=== PATIENT | female | born 1990 | race Caucasian/White ===

== ENCOUNTER 2018-06-25 16:45 | Outpatient (CLI) | payer MEDICAID ==
[~2018-06-25] VITALS: Ht 149.9 cm; Wt 71.6 kg
[2018-06-25] MEDS ORDERED: PREN-93 PO (17:27)
[2018-06-25] MEDS ORDERED: AMOX500C2 PO (17:27)
[2018-06-25 17:28] VITALS: Ht 149.9 cm; Wt 71.6 kg
[2018-06-25 17:29] VITALS: BP 100/55; PULSE 92; RESP 18
--- NOTE | 2018-06-25 19:24 | PN ---
Triage Information Date/Time Jun 25, 2018 Reason for visit: Abd/pelvic pain Weeks of Gestation TWINS 29w 2d /Para 3/2 Diabetes: none Hypertention: none Additional information Pt had a tooth puller 6 days ago and was put on Amoxicillin and has had diarrhea since that time and abdominal pain since this AM. PMHx: none. PSHx: x 2. All: ASA Objective Vital Signs Date Temp Pulse Resp B/P (MAP) Pulse Ox O2 O2 Flow FiO2 Time Delivery Rate 06/25/18 97.8 92 18 100/55 17:29 (70) Heart Rate: 140's Heart Rate Comments No decels. Contractions: None Results/Medications Results 24 hrs Laboratory Tests Test 06/25/18 17:00 Urine Color YELLOW Urine Clarity CLEAR Urine pH 6.0 Urine Specific [place] 1.005 Urine Ketones NEGATIVE Urine Nitrite NEGATIVE Urine Bilirubin NEGATIVE Urine Urobilinogen NEGATIVE Urine Leukocyte Esterase NEGATIVE Urine Microscopic RBC 0 Urine Microscopic WBC 0 Urine Squamous Epithelial Cells FEW Urine Hemoglobin 2+ H Urine Glucose NEGATIVE Urine Total Protein NEGATIVE Imaging Results Twin A MVP 4.4 Twin B MVP 4.9 Cervical length 4.4 cm. Disposition: Discharge Assessment/Plan A: TWINS. IUP at 29w 2d. Diarhhea and abdominal pain. P: [facility] then october d/c home. Explained to pt that the loose stools and the pain won't resolve until she stops the antibiotics. INES CRONIN MD Jun 25, 2018 19:24
[2018-06-25] MEDS ORDERED: LOPERAMIDE HCL 1 MG/5 ML LIQUID (10 ML UD CUP) PO ONE (20:30)
== END 2018-06-25 19:50 | disposition home or self-care (01) ==
LOC: OBT 16:45 → L-D 16:45 → OBT 19:50
PROVIDERS: ATTEND Obstetrics & Gynecology
DX: O30.003 Twin pregnancy, unspecified number of placenta and unspecified number of amniotic sacs, third trimester (principal); O26.893 Other specified pregnancy related conditions, third trimester; R19.7 Diarrhea, unspecified; R10.9 Unspecified abdominal pain; Z3A.29 29 weeks gestation of pregnancy
CPT/HCPCS: 59025; 76815; 76817; 81001; Z7500; Z7610; G0463

== ENCOUNTER 2018-08-02 16:15 | Outpatient (CLI) | payer MEDICAID ==
[~2018-08-02] VITALS: Ht 149.9 cm; Wt 76.3 kg
[~2018-08-02 16:15] MED LIST: PREN-93 PO
[2018-08-02 16:29] VITALS: BP 115/73; PULSE 103; RESP 18; Ht 149.9 cm; Wt 76.3 kg
--- NOTE | 2018-08-02 17:59 | TRIAGE ---
OB Triage Datetime Report Generated by CPN: 08/02/2018 17:59 Datetime: 08/02/2018 17:00 Stage of : OB Triage Maternal Assessment Level of Consciousness: Fully Conscious Labor Evaluation Frequency: 3UC/HR Monitor Mode: External Duration (sec)2399: 60-80 Quality: Mild Resting Tone [place]: Relaxed Heart Rate FHR Baseline Rate: 135 Monitor Mode: External US Variability: Moderate 6-25 bpm Accelerations: 15X15 Decelerations: None Category: Category I Pain Assessment Pain Scale: 0 Pain Goal: 3 Vaginal Exam Membrane Status: Intact Vaginal Bleeding: None Datetime: 08/02/2018 16:26 Assessment Type: Triage Maternal Assessment Level of Consciousness: Fully Conscious DTR's/Clonus: DTRs 2+; No Clonus Headache: Denies Blurred Vision: No Respiratory Effort: Unlabored; Regular Rhythm; Equal Expansion Breath Sounds, Left: Clear and Equal Breath Sounds, Right: Clear and Equal Nausea/Vomiting: Denies RUQ Epigastric Pain: Denies Lower Extremities Edema: None Degree: None Upper Extremities Edema: None Degree: None Facial Edema: None Fall Risk Assessment History of Falling: (0) No Secondary Diagnosis: (0) No Ambulatory Aid: (0) Bedrest/Nurse Assist IV Therapy: (0) No Gait: (0) Normal/Bedrest/Immobile Mental Status: (0) Oriented to Own Ability Fall Score: 0 Fall Risk Score Definition: No Risk: No action required Datetime: 08/02/2018 16:24 Time of Arrival: 08/02/2018 16:07 EGA: 34.5 Arrived By: Ambulatory Arrived From: Office Chief Complaint: pt. sent in for NST/BPP FOR TWIN GEST. AND R/O PTL Movement: Present Contractions: Denies/Absent Rupture of Membranes: Denies Vaginal Bleeding: None Vaginal Discharge: Denies Recent Sexual Intercouse: Denies Abdominal Trauma: Not Applicable Patient Complaints: None Time Provider Notified: 08/02/2018 17:40 Provider Notified: HADADIAN Initial Plan: EFM/BPPX2 Datetime: 08/02/2018 16:19 Monitor Mode: External Monitor Mode: External US Datetime: 07/05/2018 10:25 Fall Score: 0 Fall Risk Score Definition: No Risk: No action required Datetime: 07/05/2018 09:53 EGA: 30.5 Datetime: 06/25/2018 16:52 EGA: 29.2 Datetime: 06/25/2018 16:51 Fall Score: 0 Fall Risk Score Definition: No Risk: No action required
--- NOTE | 2018-08-02 20:26 | PN ---
Triage Information Date/Time Reason for visit: Antepartum testing Weeks of Gestation 34 weeks and 5 days /Para Diabetes: none Hypertention: none Objective Vital Signs Date Temp Pulse Resp B/P (MAP) Pulse Ox O2 O2 Flow FiO2 Time Delivery Rate 08/02/18 98.5 103 18 115/73 Room Air 16:29 (87) Heart Rate: 140's Contractions: 6-10 Minutes Apart Disposition: Discharge Assessment/Plan 28 years old 3 para 2001 with single intrauterine at 34 weeks and 5 days with CLIFTON of 09/08/2018 with twin gestation presented for antepartum testing. She states good movement. She denies nausea, vomiting, shortness of breath, chest pain, headache, visual changes, vaginal bleeding or LOF. - FHRs: No sign of metabolic acidosis- Category I - She has irregular uterine contraction, patient does not feel dose - Ultrasound performed, normal amniotic fluid index. Biophysical profile for both baby 8 out of 8 - Symptoms and sign of labor, preeclampsia, kick count discussed with patient, she voiced understanding. All of her questions answered. - Patient was discharged home in stable condition with the appropriate discharge instructions provided. I would like patient to have close follow-up with her primary physician or outpatient clinic in 1-2 days or return to triage for worsening symptoms or any other urgent concerns. CEZAR BERRIOS Aug 02, 2018 20:26
== END 2018-08-02 18:05 | disposition home or self-care (01) ==
LOC: OBT 16:15 → L-D 16:16 → OBT 18:05
PROVIDERS: ATTEND Obstetrics & Gynecology
DX: O30.003 Twin pregnancy, unspecified number of placenta and unspecified number of amniotic sacs, third trimester (principal); Z3A.34 34 weeks gestation of pregnancy
CPT/HCPCS: 76818; Z7500; G0463

== ENCOUNTER 2018-08-23 19:24 | Inpatient (IN) | payer MEDICAID ==
[~2018-08-23] VITALS: Ht 149.9 cm; Wt 79.0 kg
[2018-08-23 21:59] VITALS: Ht 149.9 cm; Wt 79.0 kg
[2018-08-23] MEDS ORDERED: OXYTOCIN 30 UNITS/LR 500 ML IV PRN (22:00)
[2018-08-23] MEDS ORDERED: MISOPROSTOL 200 MCG TAB PR PRN (22:00)
[2018-08-23] MEDS ORDERED: METHYLERGONOVINE 0.2 MG INJ IM PRN (22:00)
[2018-08-23] MEDS ORDERED: CEFAZOLIN 2 GM/50 ML (PMX) 50 ML IVPB SCH (22:00)
[2018-08-23] MEDS ORDERED: CARBOPROST 250 MCG INJ IM PRN (22:00)
[2018-08-23] MEDS ORDERED: OXYTOCIN 30 UNITS/LR 500 ML IV SCH (22:00)
[2018-08-23 22:01] VITALS: BP 135/89; PULSE 87; RESP 18
--- NOTE | 2018-08-23 22:04 | TRIAGE ---
OB Triage Datetime Report Generated by CPN: 08/23/2018 22:04 Datetime: 08/23/2018 19:43 Stage of : OB Triage Assessment Type: Triage Maternal Assessment Level of Consciousness: Fully Conscious DTR's/Clonus: DTRs 2+; No Clonus Headache: Denies Blurred Vision: No Respiratory Effort: Unlabored; Regular Rhythm; Equal Expansion Breath Sounds, Left: Clear and Equal Breath Sounds, Right: Clear and Equal Nausea/Vomiting: Denies RUQ Epigastric Pain: Denies Facial Edema: None Temperature Route: Oral Fall Risk Assessment History of Falling: (0) No Secondary Diagnosis: (0) No Ambulatory Aid: (0) Bedrest/Nurse Assist IV Therapy: (0) No Gait: (0) Normal/Bedrest/Immobile Mental Status: (0) Oriented to Own Ability Fall Score: 0 Fall Risk Score Definition: No Risk: No action required Pain Assessment Pain Scale: 0 Pain Presence: None/Denies Pain Type: N/A Datetime: 08/23/2018 19:35 Time of Arrival: 08/23/2018 19:15 EGA: 37.5 Arrived By: Ambulatory Arrived From: Dr. Celaya Chief Complaint: Sent from office for elevated BP's. Movement: Present Contractions: Denies/Absent Rupture of Membranes: Denies Vaginal Bleeding: None Vaginal Discharge: Denies Recent Sexual Intercouse: Denies Abdominal Trauma: Not Applicable Patient Complaints: Other Time Provider Notified: 08/23/2018 20:45 Provider Notified: Dr. Ayala Initial Plan: CEFM Datetime: 08/02/2018 16:26 Fall Score: 0 Fall Risk Score Definition: No Risk: No action required Datetime: 08/02/2018 16:24 EGA: 34.5 Datetime: 07/05/2018 10:25 Fall Score: 0 Fall Risk Score Definition: No Risk: No action required Datetime: 07/05/2018 09:53 EGA: 30.5 Datetime: 06/25/2018 16:52 EGA: 29.2 Datetime: 06/25/2018 16:51 Fall Score: 0 Fall Risk Score Definition: No Risk: No action required
--- NOTE | 2018-08-23 23:57 | PREAC ---
Date/Time of Note Date/Time of Note DATE: 08/23/18 TIME: 23:55 Anesthesia Eval and Record Evaluation Time Pre-Procedure Interview DATE: 08/23/18 TIME: 23:55 Age 28 Sex female NPO: 4 hrs a few bites of apple at 2100 Preoperative diagnosis rupture of membranes, twin gestation, previous Csection Planned procedure Repeat Csection Past Medical History Past Medical History: Includes : Twin Surgery & Anesthesia Issues No known issue Meds Anticoagulation: No Beta Genaro within 24 hr: No Reason Beta Genaro not given: Pt. not on B-Genaro Reported Medications Vit No.124/Iron/FA ( Vitamin Tablet) 1 Each Tablet, 1 EACH PO DAILY, TAB 06/25/18 Current Medications Cefazolin Sodium/ Dextrose 50 ml @ 100 mls/hr ONCE IVPB ; Start 08/23/18 at 22:00 Oxytocin/Lactated Ringer's 500 ml @ 125 mls/hr POST IV ; Start 08/23/18 at 22:00 Oxytocin/Lactated Ringer's 500 ml @ 0 mls/hr ONCE PRN IV .VAGINAL BLEEDING; Start 08/23/18 at 22:00 Methylergonovine Maleate (Methergine) 0.2 mg ONCE PRN IM .VAGINAL BLEEDING; Start 08/23/18 at 22:00 Carboprost Tromethamine (Hemabate) 250 mcg ONCE PRN IM .VAGINAL BLEEDING; Start 08/23/18 at 22:00 Misoprostol (Cytotec) 1,000 mcg ONCE PRN ID .VAGINAL BLEEDING; Start 08/23/18 at 22:00 Meds reviewed: Yes Allergies Coded Allergies: aspirin (Verified Allergy, Unknown, throat swelling and rash, 08/23/18) Allergies Reviewed: Yes Labs/Studies Labs Reviewed: Reviewed by anesthesiologist Result Diagram: 08/23/18 2330 Laboratory Tests 08/23/18 23:30 test: Positive Pre-procedure Exam Last vitals Vital Signs Date Temp Pulse Resp B/P (MAP) Pulse Ox O2 O2 Flow FiO2 Time Delivery Rate 08/23/18 98.8 87 18 135/89 Room Air 22:01 (104) Airway: Adequate mouth opening, Adequate thyromental dist Mallampati: Mallampati III Teeth: Normal Lung: Normal Heart: Normal ASA Physical Status ASA physical status: 2 Emergency: E Planned Anesthetic Neuraxial: Spinal Planned Pain Management Sub-arachniod narcotics, Parenteral pain med, Other neuraxial med Pre-operative Attestations Prior to commencing anesthesia and surgery, the patient was re-evaluated, there was verification of: *The patient's identity *The results of appropriate recent lab work and preoperative vital signs *The above evaluation not changing prior to induction *Anesthetic plan, risk benefits, alternative and complications discussed with patient/family; questions answered; patient/family understands, accepts and wishes to proceed. ALLY VICENTE MD Aug 23, 2018 23:57
[2018-08-24] MEDS ORDERED: LABETALOL HCL 20MG INJ IV PRN
[2018-08-24] MEDS ORDERED: HYDROmorphONE 1 MG/5 ML IV SYRINGE IV PRN ×3
[2018-08-24] MEDS ORDERED: NALOXONE (0.4 MG/ML) INJ IV PRN
[2018-08-24] MEDS ORDERED: DIPHENHYDRAMINE 50 MG INJ IV PRN ×2
[2018-08-24] MEDS ORDERED: HYDROmorphONE 0.5 MG/0.5 ML SYG IV PRN
[2018-08-24] MEDS ORDERED: FENTAnyl 50 MCG/ML VIAL IV PRN ×2
[2018-08-24] MEDS ORDERED: ONDANSETRON 4 MG INJ IV PRN ×2
[2018-08-24] MEDS ORDERED: hydrALAzine 20 MG INJ IV PRN
[2018-08-24] MEDS ORDERED: LEVALBUTEROL (NEB) 1.25 MG/0.5 ML AMP HHN PRN
[2018-08-24] MEDS ORDERED: ZOLPIDEM 5 MG TAB PO PRN
[2018-08-24] MEDS ORDERED: ONDANSETRON 4 MG INJ IV STA (00:16)
[2018-08-24] MEDS ORDERED: OXYTOCIN 10 UNIT INJ ONE ×2 (00:20)
[2018-08-24] MEDS ORDERED: morphine SULFATE/PF (10 MG/10 ML) INJ ONE (00:20)
[2018-08-24] MEDS ORDERED: OXYTOCIN 30 UNITS/LR 500 ML IV ONE (00:20)
--- NOTE | 2018-08-24 00:20 | HP ---
Date/Time of Note Date/Time of Note DATE: 08/23/18 TIME: 23:56 OB - History Hx of Present Free Text/Dictation 28 years old with diamniotic/dichorionic twin gestation at 37 weeks and 5 days seen at the clinic for visit and was noted has elevated blood pressure in range of 143/91-160 3/104. Patient sent to triage for further evaluation. She states good movement. She denies nausea, vomiting, shortness of breath, chest pain, headache, visual changes, vaginal bleeding or LOF. Risk factors 1. Diamniotic dichorionic twin gestation 2. Gestational hypertension 3. Previous delivery x2 Chief Complaint: Elevated blood pressure Estimated Due Date: Sep 08, 2018 : 3 Para: 2 Spontaneous : 0 Therapeutic : 0 Care: Good Care Ultrasounds: Normal mid trimester US Obstetrical Complications: Gestational Hypertension Medical Complications: None Past Family/Social History * Past Medical, Surgical, Family and Obstetric Histories reviewed from chart. Blood Type: O+ Rubella: immune RPR/VDRL: Negative GBS Status: Negative HBsAG: Negative OB Admission Exam Vital Signs Vital Signs Vital Signs Date Temp Pulse Resp B/P (MAP) Pulse Ox O2 O2 Flow FiO2 Time Delivery Rate 08/23/18 98.8 87 18 135/89 Room Air 22:01 (104) Physical Exam HEENT: WNL Heart: Rhythm Normal Lungs: Clear Abdomen: WNL Extremities: Normal Reflexes: Normal Membranes: Intact Accelerations: Accelerations Present Decelerations: No Decelerations Varibility: Moderate Contractions on Admission: >10 Minutes Apart Last 72 hours Lab Results Section Procedure Note CBC & BMP 08/23/18 23:30 OB Assessment/Plan Other plan: 28 years old 3 para 2001 with diamniotic/dichorionic twin gestation, gestational hypertension and 2 previous delivery desiring repeat delivery and permanent surgical sterilization - FHRs: No sign of metabolic acidosis- Category I - Continuous EFM, toco - CBC, blood type and screen, CMP, uric acid, urinalysis - Please see the orders - O+/Rubella: Immune - GBS: Negative Addendum: While the patient was in triage, she was experiencing rupture of membrane. Exa m confirmed clear leakage of fluid. Presentation is breech/cephalic. The patient's last meal was at 16:00 yesterday and ate half of apple as snack at 21:00 yesterday. I have discussed the patient over the phone with Dr. Boone- anesthesiologist. As the presentation of baby A is breech and there is the risk of cord prolapse with rupture of membrane, the patient needs to have delivery. The risk of delivery including but not limited to bleeding, infection, injury to other organs (bowel, bladder, ureter, vessels, nerves), injury to fetus, blood transfusion, blood transfusion related infection, risk of anesthesia, adhesion, needs for future , removal of uterus or any other indicated surgery, permanent surgical sterilization, other contraceptive options including IUD, increased risk of ectopic if failure occurs discussed with the patient and her family. She expressed understanding. All of her questions were answered. She signed the informed consent. PHYSICIAN'S VERIFICATION OF INFORMED CONSENT The patient was counseled regarding the procedure, its indications, risks, potential complications and alternatives and any questions were answered. C onsent was obtained. PLANNED PROCEDURE/TREATMENT: delivery with possible using vacuum/forc eps, bilateral tubal ligation/bilateral salpingectomy and any other indicated surgery PHYSICIAN'S VERIFICATION OF INFORMED CONSENT FOR BLOOD TRANSFUSION: There is a reasonable possibility that blood transfusion will be necessary as a result of the patient's procedure. I have discussed the following with the patient/patient's legal circulation representative: An explanation of the benefits and risks of the transfusion of blood or blood products and the possible alternatives. All questions have been answered to the patient's satisfaction. INFORMED CONSENT:The patient has been informed of: The nature of the proposed care, treatment, services, medications, interventions or procedures. Potential benefits, risks or side effects, including potential problems related to recuperation. The likelihood of achieving care treatment and service goals. Reasonable alternatives to the proposed care, treatment and service. The relevant risks, benefits and side effects related to alternatives, including the possible results of not receiving care, treatment and services. When indicated, any limitations on the confidentiality of information learned from or about the patient. If appropriate, the risks, benefits and alternatives of the drugs to be used for sedation/analgesia including moderate sedation. If appropriate, patient has been provided information on the risks, benefits and alternatives to the transfusion of blood and/or blood products. If appropriate, patient has been provided information regarding the [place] Blood Act. CEZAR BERRIOS Aug 24, 2018 00:07
[2018-08-24] MEDS ORDERED: METOCLOPRAMIDE 10 MG INJ IV ONE (00:30)
[2018-08-24] MEDS ORDERED: FAMOTIDINE 20 MG INJ IV ONE (00:30)
[2018-08-24] MEDS ORDERED: PROPOFOL 20 ML ONE (01:29)
[2018-08-24] MEDS ORDERED: FENTAnyl 50 MCG/ML VIAL ONE (01:48)
[2018-08-24] MEDS ORDERED: MIDAZOLAM 1 MG/ML 2 ML INJ ONE (01:48)
[2018-08-24] MEDS ORDERED: LABETALOL HCL 20MG INJ ONE (02:00)
[2018-08-24] MEDS ORDERED: KETOROLAC 30 MG INJ ONE (02:18)
[2018-08-24] MEDS ORDERED: TRIAMCINOLONE ACET 40 MG/ML INJ IM ONE (02:30)
--- NOTE | 2018-08-24 03:17 | PAC ---
Date/Time of Note Date/Time of Note DATE: 08/24/18 TIME: 03:17 Post-Anesthesia Notes Post-Anesthesia Note Last documented vital signs Vital Signs Date Temp Pulse Resp B/P (MAP) Pulse Ox O2 O2 Flow FiO2 Time Delivery Rate 08/23/18 98.8 87 18 135/89 Room Air 22:01 (104) Activity: WNL Respiratory function: WNL Cardiovascular function: WNL Mental status: Baseline Pain reasonably controlled: Yes Hydration appropriate: Yes Nausea/Vomiting absent: Yes ALLY VICENTE MD Aug 24, 2018 03:17
--- NOTE | 2018-08-24 05:05 | OPR ---
Operative Report Planned Procedure Procedure date Aug 24, 2018 Procedure(s) 1. Repeat low transverse delivery 2. Bilateral tubal ligation 3. Lysis of adhesion Performed by see signature line Assembler For Puller Over Machine: CASEY CORREIA MD Anesthesiologist: ALLY VICENTE MD Pre-procedure diagnosis 28 years old 3 para 2001 with diamniotic/dichorionic twin gestation, gestational hypertension and 2 previous delivery desiring repeat delivery and permanent surgical sterilization [id number] Anesthesia Type: [id number] spinal Post-Procedure Post-procedure diagnosis 28 years old 3 para 2001 with diamniotic/monochorionic twin gestation, gestational hypertension and 2 previous delivery desiring repeat delivery and permanent surgical sterilization Findings 1. Normal uterus, fallopian tubes and ovaries 2. Baby A: Viable female in rola breech presentation. 9 at one minute and 9 in 5 minutes. Weight: 3105 g - 6 pound 14 ounces. High: 19 1/4 inches. Time of delivery: 01:45 Baby B: Viable female in cephalic presentation. 8 at one minute and 9 in 5 minutes. Weight: 40 g - 4 pound 15 ounces High: 18 1/4 inches. Time of delivery: 01:46 3. Placenta with three vessel cord 4. Amniotic fluids - Clear 5. Multiple omental adhesion to peritoneum which clamps, cut and suture ligated Estimated Blood Loss: 500 - 600 mls Specimen(s) none Grafts/Implant(s) none Complication(s) none Pt Condition post procedure: stable Disposition: PACU Procedure Description INDICATION AND HISTORY: A 28 years old 3 para 2001 with diamniotic/monochorionic twin gestation, gestational hypertension and 2 previous delivery desiring repeat delivery and permanent surgical sterilization. The risk of delivery including but not limited to bleeding, infection, injury to other organs (bowel, bladder, ureter, vessels, nerves), injury to fetus, blood transfusion, blood transfusion related infection, risk of anesthesia, adhesion, needs for future , removal of uterus or any other indicated surgery, permanent surgical sterilization, increased risk of ectopic if failure of procedure occurs discussed with the patient and her family. She expressed understanding. All of her questions were answered. She signed the informed consent. DESCRIPTION OF OPERATION: The patient was taken to the operating room, where she was identified and the procedure was verified. The patient received two gram of Ancef 30 minutes prior to surgery. After adequate spinal anesthesia, the patient placed in the dorsal supine position with a left tilt. The heart rate was 135/140 bpm. The patient was then prepped and draped in the normal sterile fashion. The patient had an vertical incision with large keloid. A vertical skin incision was made lateral to scar with knife and scar tissue was removed. Then the incision carried down to the fascia with knife. The fascia was incised in the midline and the fascial incision was carried vertically with knife. The rectus muscle was extremely thin, and the peritoneum was entered. The peritoneal incision was then stretched and an Trevon retractor was inserted. Then, an incision was made in the lower uterine segment in a transverse fashion with a knife and extended bluntly. The baby A was delivered atraumatically in rola breech presentation with the above findings. The umbilical cord was clamped and cut. Then baby B membrane was ruptured and the baby delivered atraumatically in cephalic presentation with the above findings, the umbilical cord was clamped and cut. The neonatology resuscitation team was present and the babies were handed to them. A cord blood samples was obtained for further evaluation. The placenta and membrane, which appeared normal were Removed. The uterus was cleared of all clot and debris. The uterus was then closed in a two layer fashion with 0-Monocryl. At the time of closure, hemostasis was noted. Then the left fallopian tube was identified and was grasped using Juan Diego clamp, segment of distal fallopian tube including fimbria was double ligated with O- plain, excised and sent to pathology. Same procedure repeated at the right side. Hemostasis of stump of both fallopian tube reassured. The gutters were irrigated. The peritoneum and fascia reapproximated with 0-PDS. The muscle was reapproximated with 3-0 Vicryl. The fascia was approximated with 0-Vicryl in a running fashion. The subcutaneous tissue was re approximated with 3-0 vicryl in a 2 layer. The skin was closed with Insorb and 4-0 Monocryl. All instruments, sponges and needle counts were correct x3. The patient tolerated the procedure well. She transferred to the recovery room in stable condition. CEZAR BERRIOS Aug 24, 2018 05:04
[2018-08-24 05:43] VITALS: BP 126/74; PULSE 67; RESP 18
[2018-08-24] MEDS ORDERED: OXYTOCIN 30 UNITS/LR 500 ML IV SCH (06:03)
[2018-08-24] MEDS ORDERED: METHYLERGONOVINE 0.2 MG TAB PO PRN (06:30)
[2018-08-24] MEDS ORDERED: MISOPROSTOL 200 MCG TAB PR PRN (06:30)
[2018-08-24] MEDS ORDERED: METHYLERGONOVINE 0.2 MG INJ IM PRN (06:30)
[2018-08-24] MEDS ORDERED: OXYTOCIN 30 UNITS/LR 500 ML IV PRN (06:30)
[2018-08-24] MEDS ORDERED: CARBOPROST 250 MCG INJ IM PRN (06:30)
[2018-08-24] MEDS ORDERED: METOPROLOL 5 MG INJ ONE (07:00)
[2018-08-24] MEDS: DEXTROSE 5%-LR 1,000 ML IV SCH ×2 (07:00→14:03)
[2018-08-24 08:30] VITALS: BP 119/75; PULSE 69; RESP 18
[2018-08-24] MEDS: SENNA/DOCUSATE NA (8.6MG/50MG) TAB PO SCH ×2 (09:00→20:14)
[2018-08-24 12:00] VITALS: BP 126/70; PULSE 72; RESP 18
[2018-08-24 15:51] VITALS: BP 108/62; PULSE 62; RESP 18
[2018-08-24 19:50] VITALS: BP 128/75; PULSE 60; RESP 19
[2018-08-24] MEDS: HYDROmorphONE 0.5 MG/0.5 ML SYG IV PRN ×2 (20:15→23:54)
[2018-08-25 04:06] VITALS: BP 140/84; PULSE 60; RESP 19
[2018-08-25] MEDS: HYDROCODONE/APAP (5/325) TAB PO PRN ×3 (04:06→17:23)
[2018-08-25] MEDS ORDERED: IBUPROFEN 800 MG TAB PO SCH (06:00)
[2018-08-25 07:55] VITALS: BP 115/72; PULSE 77; RESP 18
[2018-08-25] MEDS: SENNA/DOCUSATE NA (8.6MG/50MG) TAB PO SCH ×2 (09:32→22:38)
[2018-08-25] MEDS: MAGNESIUM HYDROXIDE 30ML CUP PO PRN (09:32)
[2018-08-25] MEDS ORDERED: DIPHTH/TET/ACEL PERTUSS (ADULT) 0.5 ML VIAL IM* ONE (11:00)
[2018-08-25] MEDS ORDERED: CELECOXIB 200 MG CAP PO SCH (13:00)
[2018-08-25] MEDS ORDERED: HYDROCODONE/APAP (5/325) TAB PO PRN (13:00)
[2018-08-25] MEDS ORDERED: HYDROCODONE/APAP (5/325) TAB GTB SCH (14:00)
[2018-08-25] MEDS: HYDROCODONE/APAP (5/325) TAB PO SCH ×2 (14:00→22:38)
[2018-08-25 15:50] VITALS: BP 127/78; PULSE 80; RESP 18
--- NOTE | 2018-08-25 17:09 | PN ---
Date/Time of Note Date/Time of Note DATE: 08/25/18 TIME: 17:08 OB Subjective Subjective Subjective POD#1 Patient is doing well. She denies nausea, vomiting, shortness of breath, chest pain, headache. She has been ambulating without difficulty, tolerating regular diet. Pain is well controlled on current medications OB Objective Objective Objective VS - Last 72 Hours, by Label Date Temp Pulse Resp B/P (MAP) Pulse Ox O2 O2 Flow FiO2 Time Delivery Rate 08/25/18 98.4 80 18 127/78 Room Air 15:50 (94) 08/25/18 99.1 77 18 115/72 Room Air 07:55 (86) 08/25/18 98.2 60 19 140/84 Room Air 8.0 04:06 (102) 08/24/18 98.3 60 19 128/75 Room Air 19:50 (92) 08/24/18 98.8 62 18 108/62 Room Air 15:51 (77) 08/24/18 98.5 72 18 126/70 99 Room Air 12:00 (88) 08/24/18 99.1 69 18 119/75 98 Room Air 08:30 (90) 08/24/18 98.3 67 18 126/74 Room Air 05:43 (91) 08/23/18 98.8 87 18 135/89 Room Air 22:01 (104) General: AAO X 3, comfortable, NAD, appropriate mood and affect. Heart: RRR +S1, +S2, no murmurs. Lungs: Clear to auscultation (B/L), no rales, rhonchi or wheezing. ABD: +BS. Soft, non-tender. Uterus 2 cm below umbilicus Incision: Clear, dry, intact. No erythema, drainage or induration. Flank: No CVA tenderness (B/L) LE: Mild edema. No clubbing, cyanosis, thigh or calf tenderness (B/L). Homans 'sign is negative OB Assessment/Plan Other plan: 28 years old 3 para 3004 s/p repeat low transverse delivery and bilateral tubal ligation. POD#1 - AF, VSS - Babies are doing well. Both are at bedside. She is bonding well with - Continue care CEZAR BERRIOS Aug 25, 2018 17:09
[2018-08-25] MEDS ORDERED: traMADol 50 MG TAB PO PRN (18:00)
[2018-08-25 20:00] VITALS: BP 134/89; PULSE 89; RESP 19
[2018-08-25] MEDS: traMADol 50 MG TAB PO SCH (22:39)
[2018-08-26 04:00] VITALS: BP 105/66; PULSE 65; RESP 20
[2018-08-26] MEDS: traMADol 50 MG TAB PO SCH ×3 (06:05→21:31)
[2018-08-26] MEDS: HYDROCODONE/APAP (5/325) TAB PO SCH ×3 (06:05→21:30)
[2018-08-26 08:00] VITALS: BP 121/73; PULSE 71; RESP 17
[2018-08-26] MEDS: MAGNESIUM HYDROXIDE 30ML CUP PO PRN (09:25)
[2018-08-26] MEDS: LANOLIN HPA 1 PKT TOP PRN (09:25)
[2018-08-26] MEDS: SENNA/DOCUSATE NA (8.6MG/50MG) TAB PO SCH ×2 (09:25→21:26)
[2018-08-26] MEDS: HYDROCODONE/APAP (5/325) TAB PO PRN ×3 (11:12→23:04)
[2018-08-26 15:50] VITALS: BP 125/78; PULSE 75; RESP 18
[2018-08-26 20:20] VITALS: BP 121/89; PULSE 71; RESP 18
[2018-08-27 04:00] VITALS: BP 108/67; PULSE 65; RESP 18
[2018-08-27] MEDS: HYDROCODONE/APAP (5/325) TAB PO SCH ×3 (06:16→22:12)
[2018-08-27] MEDS: traMADol 50 MG TAB PO SCH ×3 (06:16→22:12)
[2018-08-27 08:00] VITALS: BP 116/61; PULSE 71; RESP 18
[2018-08-27] MEDS ORDERED: MEASLES,MUMPS,RUBELLA VACCINE INJ SC* ONE (09:00)
[2018-08-27] MEDS ORDERED: DIPHTH/TET/ACEL PERTUSS (ADULT) 0.5 ML VIAL IM* ONE (09:00)
[2018-08-27] MEDS: SENNA/DOCUSATE NA (8.6MG/50MG) TAB PO SCH ×2 (09:15→20:37)
--- NOTE | 2018-08-27 13:01 | QN ---
Documentation Comment POD#3 is stable afebrile tolerates diet No VB +BM +Voids VS stable Gen NAD Abd soft NT ND Incision intact Gentalia No blood at perineum -->Discharge plan tomorrow as babies are iot discharged -->Precautions discussed MORA BERMUDEZ M.D. Aug 27, 2018 13:01
[2018-08-27 15:58] VITALS: BP 111/86; PULSE 74; RESP 18
[2018-08-27 19:40] VITALS: BP 114/88; PULSE 70; RESP 19
[2018-08-27] MEDS: LANOLIN HPA 1 PKT TOP PRN (22:12)
[2018-08-28 04:00] VITALS: BP 110/66; PULSE 76; RESP 20
[2018-08-28] MEDS: traMADol 50 MG TAB PO SCH ×2 (05:51→13:26)
[2018-08-28] MEDS: HYDROCODONE/APAP (5/325) TAB PO SCH ×2 (05:51→13:26)
[2018-08-28 08:00] VITALS: BP 126/83; PULSE 67; RESP 20
[2018-08-28] MEDS: SENNA/DOCUSATE NA (8.6MG/50MG) TAB PO SCH (09:02)
--- NOTE | 2018-08-28 13:18 | QN ---
Documentation Comment POD#4 is stable afebrile tolerates diet No VB +BM+Voids VS stable Gen NAD Abd soft NT ND Incision intact Gentalia No blood at perineum -->Discharge plan -->Ambulation -->Precautions discussed MORA BERMUDEZ M.D. Aug 28, 2018 13:18
--- NOTE | 2018-08-28 13:18 | DS ---
Date/Time of Note Date/Time of Note DATE: 08/28/18 TIME: 13:18 Discharge Summary Admission/Discharge Info Admit Date/Time Aug 23, 2018 at 20:45 Discharge Date/Time 08/28/2018 Discharge Diagnosis Patient Condition: Good Hospital Course uneventful Home Meds Reported Medications Vit No.124/Iron/FA ( Vitamin Tablet) 1 Each Tablet, 1 EACH PO DAILY, TAB 06/25/18 Primary Care Provider Care Physician No Primary MORA BERMUDEZ M.D. Aug 28, 2018 13:18
--- NOTE | 2018-08-29 15:10 | NSTRPT ---
NST Information Datetime Report Generated by CPN: 08/29/2018 15:10 Datetime: 08/23/2018 08:18 NST Information EGA: 37.5 Test Number: 5 Time on Monitor: 08/23/2018 09:03 Time off Monitor: 08/23/2018 09:31 NST Duration (Min): 28 Reason for NST: Multiple Gestation; Other Reason for NST Other: Twins/Repeat C/section Test and Monitor Explained: Monitor Explained; Test Explained; Verbalized Understanding Pulse: 72 Resp: 18 SBP: 114 DBP: 89 Test Evaluation NST Interventions: None NST Interventions Other: twin b on at 0906 Patient States Movement: Present Contraction Frequency: occassional 20-30/mild/pain level 0 FHR Baseline : 140 Variability: Moderate 6-25bpm Accelerations: 15X15 Decelerations: None FHR Category: Category I NST Results: Reactive Comments: To u/s TWIN A BREECH,TRANSVERSE LEFT, MVP 3.0 cm TWIN B [place] RIGHT, MVP 4.3 cm NST Baby B Patient States Movement: Present FHR Baseline: 135 Variability: Moderate 6-25bpm Accelerations: 15X15 Decelerations: None FHR Category: Category I NST Results: Reactive Electronically Signed By E-Signature: with User ID: [id number] Datetime: 08/19/2018 08:45 NST Information EGA: 37.1 NST Duration (Min): 139 Datetime: 08/16/2018 09:14 NST Information EGA: 36.5 NST Duration (Min): 66 Datetime: 08/12/2018 09:50 NST Information EGA: 36.1 NST Duration (Min): 50 Datetime: 08/09/2018 09:10 NST Information EGA: 35.5 NST Duration (Min): 37 Datetime: 08/05/2018 13:30 NST Information EGA: 35.1 NST Duration (Min): 39
--- NOTE | 2018-08-29 17:50 | DELSUM ---
Delivery Summary A-C Datetime Report Generated by [facility]: 08/29/2018 17:50 DELIVERY PERSONNEL Dyer Helper: Tamiko Mendoza MATERNAL INFORMATION Delivery Anesthesia: Epidural; Spinal (Annotations: Data stored by [facility] on behalf of user) Medications in Delivery: SEE ANESTHESIA RECORD Delivery QBL (ml): 600 Placenta Cultured: Yes Maternal Complications: None LABOR SUMMARY EDC: 09/08/2018 00:00 No. Babies in Womb: 2 Attempted: No Labor Anesthesia: None LABOR INFORMATION Reason for Induction: Not Applicable Oxytocin: N/A Group B Beta Strep: Negative Antibiotics # of Doses: X1 ANCEF 2G Antibiotics Time of Last Dose: 08/24/2018 05:02 Steroids Given: None Reason Steroids Not Administered: Not Applicable MEMBRANES Membranes Rupture Method: Spontaneous Rupture of Membranes: 08/23/2018 23:10 Length of Rupture (hr): 2.58 Amniotic Fluid Color: Clear Amniotic Fluid Amount: Copious Amniotic Fluid Odor: None STAGES OF LABOR Stage 3 hr: 0 Stage 3 min: 3 CSECTION DELIVERY Primary Indication: Repeat Elective Secondary Indication: N/A (Annotations: Data stored by N on behalf of user) CSection Urgency: Elective CSection Incidence: Repeat Labor: No Labor Elective: Elective CSection Incision: Classical Sterilization Procedure: [place] BABY A INFORMATION Infant Delivery Date/Time: 08/24/2018 01:45 Method of Delivery: Born in Route : No : N/A Forceps: N/A Vacuum Extraction: N/A Shoulder Dystocia : N/A SHOULDER DYSTOCIA BABY A Infant Delivery Date/Time: 08/24/2018 01:45 PRESENTATION/POSITION BABY A Presentation: Breech Cephalic Presentation: N/A Breech Presentation: Neal PLACENTA INFORMATION BABY A Placenta Delivery Time : 08/24/2018 01:48 Placenta Method of Delivery: Expressed Placenta Status: Delivered SCORES BABY A Heart Rate 1 min: >100 bpm Resp Effort 1 min: Good Cry Reflex Irritability 1 min: Cough/Sneeze/Pulls Away Muscle Tone 1 min: Active Motion Color 1 min: Body [place], Extremit Blue Resuscitation Effort 1 min: Tactile Stimulation SCORE 1 MIN: 9 Heart Rate 5 min: >100 bpm Resp Effort 5 min: Good Cry Reflex Irritability 5 min: Cough/Sneeze/Pulls Away Muscle Tone 5 min: Active Motion Color 5 min: Body [place], Extremit Blue Resuscitation Effort 5 min: Tactile Stimulation SCORE 5 MIN: 9 INFANT INFORMATION BABY A Gestational Age at Delivery: 37.6 Gestational Status: Early Term- 37- 38.6 Weeks Infant Outcome : Liveborn Infant Condition : Stable Infant Sex: Female IDENTIFICATION/MEDS BABY A ID Band Number: [id number] ID Band Location: Right Leg; Left Arm Sensor Applied: Yes Sensor Number: [id number] Sensor Location : Cord Clamp Vitamin K Given : Not Given Erythromycin Given: Not Given WEIGHT/LENGTH BABY A Birthweight (gm): 3105 Infant Weight (lb): 6 Infant Weight (oz): 14 Length (in): 19.25 Length (cm): 48.90 CORD INFORMATION BABY A No. Cord Vessels: 3 Nuchal Cord : N/A Cord Blood Taken: Yes Suction: Mouth; Nose ASSESSMENT BABY A Infant Complications: None Physical Findings at Delivery: Within Normal Limits Infant Respirations: Appears Normal Campus Administrator/ALS Called : Yes Care By: GAYATRI Lange Transferred To: Remains with Mother BABY B INFORMATION Infant Delivery Date/Time: 08/24/2018 01:46 Method of Delivery : Born in Route : No : N/A Forceps : N/A Vacuum Extraction: N/A Shoulder Dystocia : N/A SHOULDER DYSTOCIA BABY B Infant Delivery Date/Time: 08/24/2018 01:46 PRESENTATION/POSITION BABY B Presentation : Cephalic Cephalic Position : Vertex Vertex Position: Right Occipital Posterior Breech Position: N/A ROM/PLACENTA INFO BABY B Rupture of Membranes: 08/23/2018 23:10 Length of Rupture (hr): 2.60 Placenta Delivery Time : 08/24/2018 01:48 Placenta Method of Delivery: Expressed Placental Status : Delivered SCORES BABY B Heart Rate 1 min: >100 bpm Resp Effort 1 min: Good Cry Reflex Irritability 1 min: Cough/Sneeze/Pulls Away Muscle Tone 1 min: Active Motion Color 1 min: Blue/Pale Resuscitation Effort 1 min: Tactile Stimulation SCORE 1 MIN: 8 Heart Rate 5 min: >100 bpm Resp Effort 5 min: Good Cry Reflex Irritability 5 min: Cough/Sneeze/Pulls Away Muscle Tone 5 min: Active Motion Color 5 min: Body [place], Extremit Blue Resuscitation Effort 5 min: Tactile Stimulation SCORE 5 MIN: 9 INFORMATION BABY B Gestational Age at Delivery: 37.6 Gestational Status : Early Term- 37- 38.6 Weeks Outcome : Liveborn Condition : Stable Infant Sex : Female IDENTIFICATION/MEDS BABY B ID Band Number : [id number] ID Band Location : Right Leg; Left Arm Sensor Applied: Yes Sensor Number : [id number] Sensor Location : Cord Clamp Vitamin K Given : Not Given Erythromycin Given : Not Given WEIGHT/LENGTH BABY B Birthweight (gm): 2240 Infant Weight (lb) : 4 Weight (oz): 15 Infant Length (in): 18.25 Infant Length (cm): 46.36 CORD INFORMATION BABY B No. Cord Vessels : 3 Nuchal Cord : N/A Cord Blood Taken : Yes Infant Suction : Mouth; Nose ASSESSMENT BABY B Complications : None Physical Findings at Delivery: Within Normal Limits Respirations : Appears Normal Campus Administrator/ALS Called : Yes Care By : Jody COLON Transfer To: Remains with Mother
== END 2018-08-28 15:00 | disposition home or self-care (01) | DRG 785 ==
LOC: OBT 19:24 → L-D 19:25 → OBT 20:45 → L-D 08-24 00:45 → PP1 08-24 05:43
PROVIDERS: ADMIT Obstetrics & Gynecology; ATTEND Obstetrics & Gynecology
PROC: 0UB70ZZ Excision of Bilateral Fallopian Tubes, Open Approach (ICD-10-PCS; 2018-08-24)
PROC: 10D00Z1 Extraction of Products of Conception, Low, Open Approach (ICD-10-PCS; principal; 2018-08-24 00:30)
DX: O30.043 Twin pregnancy, dichorionic/diamniotic, third trimester (principal); O32.1XX1 Maternal care for breech presentation, fetus 1; O13.4 Gestational [pregnancy-induced] hypertension without significant proteinuria, complicating childbirth; O34.211 Maternal care for low transverse scar from previous cesarean delivery; Z3A.37 37 weeks gestation of pregnancy; Z37.2 Twins, both liveborn; Z30.2 Encounter for sterilization
CPT/HCPCS: 80053; 81001; 84560; 85025; 85610; 85730; 86592; 86850; 86900; 86901; 88302; 88307; 99464; G0463; J0690; J1170; J1885; J2250; J2274; J2405; J2590; J2765; J3010; J7121

== ENCOUNTER 2018-09-08 10:37 | Emergency (ER) | payer MEDICAID ==
[~2018-09-08] VITALS: Ht 152.4 cm; Wt 66.8 kg
[2018-09-08 10:46] VITALS: Ht 152.4 cm; Wt 66.8 kg
[2018-09-08] MEDS ORDERED: BACITRACIN 0.9 GM OINT TOP ONE (14:00)
[2018-09-08 14:15] VITALS: BP 121/75; PULSE 83; RESP 16
--- NOTE | 2018-09-08 14:27 | ERD ---
ER Documentation Chief Complaint Chief Complaint suture removal on lower abdomen (08/24/18) HPI 28-year-old female presents for suture removal post . States that she went to her surgeon but her surgeon so that they do not have the materials to remove the sutures and told her to come to the ER. Denies any fevers, chills, discharge, pain, edema. ROS All systems reviewed and are negative except as per history of present illness. Medications Home Meds Reported Medications Vit No.124/Iron/FA ( Vitamin Tablet) 1 Each Tablet, 1 EACH PO DAILY, TAB 06/25/18 Allergies Allergies: Coded Allergies: aspirin (Verified Allergy, Unknown, throat swelling and rash, 09/08/18) PMhx/Soc Medical and Surgical Hx: pt denies Medical Hx History of Surgery: Yes (csection x 2) Anesthesia Reaction: No Hx Neurological Disorder: No Hx Respiratory Disorders: No Hx Cardiac Disorders: No Hx Psychiatric Problems: No Hx Miscellaneous Medical Probl: No Hx Alcohol Use: No Hx Substance Use: No Hx Tobacco Use: No Physical Exam Vitals Vital Signs Date Temp Pulse Resp B/P (MAP) Pulse Ox O2 O2 Flow FiO2 Time Delivery Rate 09/08/18 98.6 92 16 128/68 100 10:46 (88) Physical Exam Const: No acute distress Head: Atraumatic Eyes: Normal Conjunctiva ENT: Normal External Ears, Nose and Mouth. Neck: Full range of motion. No meningismus. Resp: Clear to auscultation bilaterally Cardio: Regular rate and rhythm, no murmurs Abd: Soft, non tender, non distended. Normal bowel sounds Skin: Surgical incision line noted into the lower abdomen with sutures in place. There is no sign of infection. No discharge, edema, erythema, or bleeding. There is also a piece of plastic noted in the suture area which is unable to be removed without making an incision. Back: No midline or flank tenderness Ext: No cyanosis, or edema Neur: Awake and alert Psych: Normal Mood and Affect Results 24 hrs Current Medications Medications Dose Sig/Rich Start Time Status Last (Trade) Ordered Route PRN Stop Time Admin Dose Reason Admin Bacitracin 1 applic ONCE ONCE 09/08/18 DC (Bacitracin TOP 14:00 09/08/18 Oint (Ud)) 14:01 Procedures/MDM Sutures were successfully removed. However there was a piece of plastic noted on the suture line. I advised patient that this would need to be taken out by her surgeon as I am unsure as to what it is what is doing there. I have low suspicion for infection or any other complications. Patient discharged with strict ER precautions. Patient advised to follow up with PMD. All questions answered at discharge. Departure Diagnosis: Primary Impression: Visit for suture removal Condition: Stable Patient Instructions: Staple Removal, No Complication Referrals: [facility] YOU HAVE RECEIVED A MEDICAL SCREENING EXAM AND THE RESULTS INDICATE THAT YOU DO NOT HAVE A CONDITION THAT REQUIRES URGENT TREATMENT IN THE EMERGENCY DEPARTMENT. FURTHER EVALUATION AND TREATMENT OF YOUR CONDITION CAN WAIT UNTIL YOU ARE SEEN IN YOUR DOCTORS OFFICE WITHIN THE NEXT 1-2 DAYS. IT IS YOUR RESPONSIBILITY TO MAKE AN APPOINTMENT FOR FOLOW-UP CARE. IF YOU HAVE A PRIMARY DOCTOR --you should call your primary doctor and schedule an appointment IF YOU DO NOT HAVE A PRIMARY DOCTOR YOU CAN CALL OUR PHYSICIAN REFERRAL HOTLINE AT IF YOU CAN NOT AFFORD TO SEE A PHYSICIAN YOU CAN CHOSE FROM THE FOLLOWING [facility] [address] [facility]. [facility] [address] [facility]. [facility] [address] [facility] [facility] [address] [facility]. [facility] [address] [facility]. [facility]. [address] Additional Instructions: FOLLOW UP WITH YOUR surgeon tomorrow. Tell your surgeon that there was a piece of plastic located in the area of the sutures and this is their responsibility to remove. Return to this facility if you are not improving as expected. MARGARETTE HANKS Sep 08, 2018 14:27
== END 2018-09-08 14:15 | disposition home or self-care (01) ==
LOC: FTE 10:37
DX: Z48.02 Encounter for removal of sutures (principal)
CPT/HCPCS: 99281